=== PATIENT | female | born 1935 | race Caucasian/White ===

== ENCOUNTER 2018-06-10 18:35 | Inpatient (IN) | payer MEDICARE, OTHER ==
[~2018-06-10] VITALS: Ht 160 cm; Wt 72.4 kg
--- NOTE | 2018-06-10 18:45 | NUR ---
Patient brought in by EMS for mechanical ground level fall, patient states she tripped over a chair and fell to the ground, patient reports she recalls the whole event, denies loss of consciousness. Patient arrives alert and jovial, oriented to person and place although she does not know the year, she can state the current president. No active bleeding to head laceration, patient with bruising to bilateral lower extremities and skin tear to left grider. Patient denies pain stating "my legs are just sore but they don't hurt". No interventions by EMS. Call rai placed within reach.
[2018-06-10] MEDS ORDERED: LIDOCAINE-MPF 1%, 5ML INFIL ONE (19:00)
[2018-06-10] MEDS ORDERED: DIPH,PERTUSS(ACELL),TET VAC/PF 0.5 ML IM-VACC ONE ×2 (19:00→19:59)
[2018-06-10] MEDS ORDERED: HYDROcodone/APAP 5/325 TABLET PO PRN (19:00)
[2018-06-10 19:24] LABS: MICROSCOPIC AUTO
[2018-06-10 19:25] LABS: CULTURE INDICATED? YES
[2018-06-10 19:28] LABS: BASOPHILS # (AUTO) 0.03 x10^3/uL (0-0.1); BASOPHILS % (AUTO) 0 % (0-1); EOSINOPHILS # (AUTO) 0.07 x10^3/uL (0-0.4); EOSINOPHILS % (AUTO) 1 % (1-7); LYMPHOCYTES # (AUTO) 1.62 x10^3/uL (1-3.4); LYMPHOCYTES % (AUTO) 20 % (22-44); MD NO; MEAN CORPUSCULAR HGB CONC 33.3 g/dL (32.4-35.8); MEAN CORPUSCULAR VOLUME 96.1 fL (80-100); MEAN PLATELET VOLUME 8.6 fL (7.4-10.4); MONOCYTES # (AUTO) 0.59 x10^3/uL (0.2-0.8); MONOCYTES % (AUTO) 7 % (2-9); NEUTROPHILS # (AUTO) 5.76 x10^3/uL (1.8-6.8); NEUTROPHILS % (AUTO) 71 % (42-75); PLATELET COUNT 268 x10^3/uL (130-400); RED BLOOD COUNT 4.29 x10^6/uL (3.82-5.3); RED CELL DISTRIBUTION WIDTH 13.9 % (9.6-15.2)
[2018-06-10 19:35] LABS: INTERNATIONAL NORMALIZED RATIO 1.14 (0.93-1.1); PROTHROMBIN TIME 11.9 Seconds (9.6-11.5)
[2018-06-10 19:36] LABS: ALANINE AMINOTRANSFERASE 20 U/L (12-78); ALBUMIN 3.8 g/dL (3.4-5.0); ANION GAP 3 mmol/L (5-15); CALCIUM 8.9 mg/dL (8.5-10.1); CHLORIDE 108 mmol/L (98-107); CREATININE 0.98 mg/dL (0.55-1.02)
[2018-06-10 19:38] LABS: ALKALINE PHOSPHATASE 86 U/L (45-117); BILIRUBIN,TOTAL 0.3 mg/dL (0.2-1.0)
--- NOTE | 2018-06-10 19:40 | NUR ---
Spoke with patient's daughter in law Melissa who states patient has history of borderline personality disorder and it has recently been decided that patient should no longer live independently. Per Melissa the patient does not wish to live in assisted living and has therefore continued to reside independently at [facility]. Per Melissa, patient does not have a safe mode of transport home if she is discharged from the emergency department as she is forgetful and not appropriate for taxi transport. Medication list received from Melissa along with medical and surgical history. Dr. Cody updated.
[2018-06-10] MEDS ORDERED: CEFDINIR 300 MG CAPSULE ONE (19:59)
[2018-06-10] MEDS ORDERED: HYDROcodone/APAP 5/325 TABLET ONE (19:59)
[2018-06-10] MEDS ORDERED: CEFDINIR 300 MG CAPSULE PO ONE (20:00)
[2018-06-10] MEDS ORDERED: CARB200T4 PO (20:34)
[2018-06-10] MEDS ORDERED: CLOP75TA PO (20:34)
[2018-06-10] MEDS ORDERED: ALPR0.25 PO (20:34)
[2018-06-10] MEDS ORDERED: FURO20TA3 PO (20:34)
[2018-06-10] MEDS ORDERED: OMEP-110 PO (20:34)
[2018-06-10] MEDS ORDERED: LISI-170 PO (20:34)
[2018-06-10] MEDS ORDERED: POTA10TA31 PO (20:34)
[2018-06-10] MEDS ORDERED: ATOR40TA78 PO (20:34)
[2018-06-10] MEDS ORDERED: CARV6.252 PO (20:34)
--- NOTE | 2018-06-10 20:49 | NUR ---
Report called to DAVID Biggs. Plan of care updated with patient.
[2018-06-10] MEDS ORDERED: ONDANSETRON ODT 4 MG PO PRN (21:00)
[2018-06-10] MEDS ORDERED: BISACODYL 10 MG SUPP PR PRN (21:00)
[2018-06-10] MEDS ORDERED: ACETAMINOPHEN 325 MG TABLET PO PRN (21:00)
[2018-06-10] MEDS ORDERED: POLYETHYLENE GLYCOL 17 GM PACKET PO PRN (21:00)
[2018-06-10] MEDS ORDERED: FUROSEMIDE 20 MG TABLET PO SCH (21:00)
[2018-06-10 21:29] VITALS: BP 117/85
[2018-06-10] MEDS ORDERED: CEFTRIAXONE PMX 1GM/50ML 50 ML IV SCH (22:00)
[2018-06-10] MEDS: SODIUM CHLORIDE 0.9% 1,000 ML IV SCH (22:10)
[2018-06-10] MEDS: ATORVASTATIN 40 MG TABLET PO SCH (22:20)
[2018-06-10] MEDS: CARBAMAZEPINE 200 MG TABLET PO SCH (22:20)
[2018-06-10] MEDS: CARVEDILOL 6.25 MG TABLET PO SCH (22:20)
[2018-06-10] MEDS: POTASSIUM CHLORIDE 10 MEQ TABLET.ER PO SCH (22:20)
[2018-06-11 00:41] VITALS: BP 126/63
[2018-06-11 05:16] LABS: CHLORIDE 112 mmol/L (98-107)
[2018-06-11 05:26] LABS: ANION GAP 6 mmol/L (5-15); CALCIUM 8.4 mg/dL (8.5-10.1)
[2018-06-11 05:27] LABS: ALANINE AMINOTRANSFERASE 17 U/L (12-78); ALKALINE PHOSPHATASE 70 U/L (45-117); BILIRUBIN,TOTAL 0.4 mg/dL (0.2-1.0); CREATININE 0.78 mg/dL (0.55-1.02); TOTAL PROTEIN 5.7 g/dL (6.4-8.2)
[2018-06-11 05:40] LABS: BASOPHILS # (AUTO) 0.04 x10^3/uL (0-0.1); BASOPHILS % (AUTO) 1 % (0-1); EOSINOPHILS # (AUTO) 0.05 x10^3/uL (0-0.4); EOSINOPHILS % (AUTO) 1 % (1-7); LYMPHOCYTES # (AUTO) 1.67 x10^3/uL (1-3.4); LYMPHOCYTES % (AUTO) 24 % (22-44); MD NO; MEAN CORPUSCULAR HEMOGLOBIN 32.3 pg (27.0-34.8); MEAN CORPUSCULAR HGB CONC 33.9 g/dL (32.4-35.8); MEAN CORPUSCULAR VOLUME 95.2 fL (80-100); MEAN PLATELET VOLUME 8.8 fL (7.4-10.4); MONOCYTES % (AUTO) 10 % (2-9); NEUTROPHILS # (AUTO) 4.64 x10^3/uL (1.8-6.8); NEUTROPHILS % (AUTO) 65 % (42-75); PLATELET COUNT 193 x10^3/uL (130-400); RED BLOOD COUNT 3.75 x10^6/uL (3.82-5.3); RED CELL DISTRIBUTION WIDTH 13.9 % (9.6-15.2)
[2018-06-11 07:03] VITALS: BP 129/75
[2018-06-11] MEDS: CARVEDILOL 6.25 MG TABLET PO SCH ×2 (09:29→21:00)
[2018-06-11] MEDS: POTASSIUM CHLORIDE 10 MEQ TABLET.ER PO SCH ×2 (09:29→21:00)
[2018-06-11] MEDS: OMEPRAZOLE 20 MG CAPSULE.DR PO SCH (09:30)
[2018-06-11] MEDS: CLOPIDOGREL 75 MG TABLET PO SCH (09:30)
[2018-06-11] MEDS: LISINOPRIL 5 MG TABLET PO SCH (09:31)
[2018-06-11] MEDS: CARBAMAZEPINE 200 MG TABLET PO SCH ×3 (09:33→21:00)
[2018-06-11] MEDS: SENNA/DOCUSATE TABLET PO SCH (09:33)
[2018-06-11] MEDS: SODIUM CHLORIDE 0.9% 1,000 ML IV SCH ×2 (11:24→23:18)
[2018-06-11 12:06] VITALS: BP 131/74
[2018-06-11] MEDS ORDERED: LORazepam 0.5MG TABLET ONE (18:03)
[2018-06-11] MEDS ORDERED: LORazepam 0.5MG TABLET PO ONE (18:30)
[2018-06-11 19:18] VITALS: BP 121/60
[2018-06-11] MEDS: CEFDINIR 300 MG CAPSULE PO SCH (21:00)
[2018-06-11] MEDS: ATORVASTATIN 40 MG TABLET PO SCH (21:00)
[2018-06-12 02:34] VITALS: BP 103/61
[2018-06-12 07:31] VITALS: BP 125/81
[2018-06-12] MEDS ORDERED: LORazepam 0.5MG TABLET ONE ×2 (07:44→15:43)
[2018-06-12] MEDS: LORazepam INTENSOL 2 MG/ML PO PRN ×2 (07:47→15:48)
[2018-06-12] MEDS: CEFDINIR 300 MG CAPSULE PO SCH ×2 (07:47→20:48)
[2018-06-12] MEDS: CLOPIDOGREL 75 MG TABLET PO SCH (07:47)
[2018-06-12] MEDS: CARBAMAZEPINE 200 MG TABLET PO SCH ×3 (07:47→20:47)
[2018-06-12] MEDS: SENNA/DOCUSATE TABLET PO SCH (07:47)
[2018-06-12] MEDS: OMEPRAZOLE 20 MG CAPSULE.DR PO SCH (07:47)
[2018-06-12] MEDS: CARVEDILOL 6.25 MG TABLET PO SCH ×2 (07:48→20:48)
[2018-06-12] MEDS: POTASSIUM CHLORIDE 10 MEQ TABLET.ER PO SCH ×2 (07:48→20:48)
[2018-06-12] MEDS: LISINOPRIL 5 MG TABLET PO SCH (07:49)
[2018-06-12 12:02] VITALS: BP 98/61
[2018-06-12] MEDS: SODIUM CHLORIDE 0.9% 1,000 ML IV SCH (12:38)
[2018-06-12 18:52] VITALS: BP 103/59
[2018-06-12] MEDS: ATORVASTATIN 40 MG TABLET PO SCH (20:48)
[2018-06-13 01:28] VITALS: BP 96/58
[2018-06-13] MEDS: SODIUM CHLORIDE 0.9% 1,000 ML IV SCH ×2 (01:58→15:18)
[2018-06-13 06:38] VITALS: BP 102/54
[2018-06-13] MEDS: CARVEDILOL 6.25 MG TABLET PO SCH ×2 (09:16→21:00)
[2018-06-13] MEDS: OMEPRAZOLE 20 MG CAPSULE.DR PO SCH (09:16)
[2018-06-13] MEDS: CARBAMAZEPINE 200 MG TABLET PO SCH ×3 (09:16→20:57)
[2018-06-13] MEDS: CLOPIDOGREL 75 MG TABLET PO SCH (09:18)
[2018-06-13] MEDS: POTASSIUM CHLORIDE 10 MEQ TABLET.ER PO SCH ×2 (09:18→21:00)
[2018-06-13] MEDS: LISINOPRIL 5 MG TABLET PO SCH (09:18)
[2018-06-13] MEDS: CEFDINIR 300 MG CAPSULE PO SCH ×2 (09:19→20:56)
[2018-06-13] MEDS: SENNA/DOCUSATE TABLET PO SCH (09:19)
[2018-06-13 12:48] VITALS: BP 97/58
[2018-06-13] MEDS ORDERED: LORazepam 0.5MG TABLET ONE (15:46)
[2018-06-13] MEDS: LORazepam INTENSOL 2 MG/ML PO PRN (15:53)
[2018-06-13 18:31] VITALS: BP 104/65
[2018-06-13] MEDS: ATORVASTATIN 40 MG TABLET PO SCH (21:00)
[2018-06-14 02:22] VITALS: BP 129/77
[2018-06-14] MEDS: SODIUM CHLORIDE 0.9% 1,000 ML IV SCH ×2 (04:38→17:27)
[2018-06-14 06:43] VITALS: BP 100/64
[2018-06-14] MEDS: SENNA/DOCUSATE TABLET PO SCH (09:00)
[2018-06-14] MEDS: CARBAMAZEPINE 200 MG TABLET PO SCH ×3 (10:14→21:03)
[2018-06-14] MEDS: CLOPIDOGREL 75 MG TABLET PO SCH (10:14)
[2018-06-14] MEDS: OMEPRAZOLE 20 MG CAPSULE.DR PO SCH (10:14)
[2018-06-14] MEDS: CEFDINIR 300 MG CAPSULE PO SCH ×2 (10:14→21:03)
[2018-06-14] MEDS: CARVEDILOL 6.25 MG TABLET PO SCH ×2 (10:14→21:03)
[2018-06-14] MEDS: POTASSIUM CHLORIDE 10 MEQ TABLET.ER PO SCH ×2 (10:14→21:03)
[2018-06-14] MEDS: LISINOPRIL 5 MG TABLET PO SCH (10:15)
[2018-06-14 12:20] VITALS: BP 107/68
[2018-06-14 15:21] VITALS: BP 105/71
[2018-06-14 19:05] VITALS: BP 111/78
[2018-06-14] MEDS: ATORVASTATIN 40 MG TABLET PO SCH (21:03)
[2018-06-15 01:58] VITALS: BP 108/72
[2018-06-15] MEDS: SODIUM CHLORIDE 0.9% 1,000 ML IV SCH (07:18)
[2018-06-15] MEDS: CLOPIDOGREL 75 MG TABLET PO SCH (09:42)
[2018-06-15] MEDS: OMEPRAZOLE 20 MG CAPSULE.DR PO SCH (09:42)
[2018-06-15] MEDS: CEFDINIR 300 MG CAPSULE PO SCH (09:42)
[2018-06-15] MEDS: CARBAMAZEPINE 200 MG TABLET PO SCH ×3 (09:43→20:44)
[2018-06-15] MEDS: SENNA/DOCUSATE TABLET PO SCH (09:43)
[2018-06-15] MEDS: POTASSIUM CHLORIDE 10 MEQ TABLET.ER PO SCH ×2 (09:43→20:44)
[2018-06-15] MEDS: CARVEDILOL 6.25 MG TABLET PO SCH ×2 (09:44→20:44)
[2018-06-15] MEDS: LISINOPRIL 5 MG TABLET PO SCH (09:44)
[2018-06-15 13:24] VITALS: BP 107/67
[2018-06-15 19:24] VITALS: BP 102/61
[2018-06-15] MEDS: ATORVASTATIN 40 MG TABLET PO SCH (20:44)
[2018-06-16] VITALS (8 sets, daily range): BP systolic 73–110; BP diastolic 49–76
[2018-06-16] MEDS: POTASSIUM CHLORIDE 10 MEQ TABLET.ER PO SCH ×2 (08:35→21:29)
[2018-06-16] MEDS: CLOPIDOGREL 75 MG TABLET PO SCH (08:35)
[2018-06-16] MEDS: CARVEDILOL 6.25 MG TABLET PO SCH ×2 (08:35→21:33)
[2018-06-16] MEDS: SENNA/DOCUSATE TABLET PO SCH (08:35)
[2018-06-16] MEDS: CARBAMAZEPINE 200 MG TABLET PO SCH ×3 (08:35→21:30)
[2018-06-16] MEDS: OMEPRAZOLE 20 MG CAPSULE.DR PO SCH (08:35)
[2018-06-16] MEDS: LISINOPRIL 5 MG TABLET PO SCH (08:35)
[2018-06-16] MEDS: ATORVASTATIN 40 MG TABLET PO SCH (21:29)
[2018-06-17 00:51] VITALS: BP 108/68
[2018-06-17 08:18] VITALS: BP 110/69
[2018-06-17] MEDS: CARBAMAZEPINE 200 MG TABLET PO SCH (09:12)
[2018-06-17] MEDS: OMEPRAZOLE 20 MG CAPSULE.DR PO SCH (09:12)
[2018-06-17] MEDS: SENNA/DOCUSATE TABLET PO SCH (09:13)
[2018-06-17] MEDS: POTASSIUM CHLORIDE 10 MEQ TABLET.ER PO SCH (09:13)
[2018-06-17] MEDS: CARVEDILOL 6.25 MG TABLET PO SCH (09:13)
[2018-06-17] MEDS: CLOPIDOGREL 75 MG TABLET PO SCH (09:13)
[2018-06-17] MEDS: LISINOPRIL 5 MG TABLET PO SCH (09:14)
== END 2018-06-17 16:25 | disposition hospice, home (50) | DRG 70 ==
LOC: ED 20:36 → EDIP 20:38 → 3NW 21:01 → 3NE 06-14 15:10
PROVIDERS: ADMIT Internal Medicine; ATTEND Internal Medicine
DX: G93.41 Metabolic encephalopathy (principal); N17.0 Acute kidney failure with tubular necrosis; N39.0 Urinary tract infection, site not specified; I67.2 Cerebral atherosclerosis; F09 Unspecified mental disorder due to known physiological condition; W01.0XXA Fall on same level from slipping, tripping and stumbling without subsequent striking against object, initial encounter; E78.5 Hyperlipidemia, unspecified; F44.81 Dissociative identity disorder; F60.3 Borderline personality disorder; G40.909 Epilepsy, unspecified, not intractable, without status epilepticus; G89.11 Acute pain due to trauma; I10 Essential (primary) hypertension; I25.10 Atherosclerotic heart disease of native coronary artery without angina pectoris; K21.9 Gastro-esophageal reflux disease without esophagitis; M17.10 Unilateral primary osteoarthritis, unspecified knee; S01.01XA Laceration without foreign body of scalp, initial encounter; Z51.5 Encounter for palliative care; Z66 Do not resuscitate; Z95.1 Presence of aortocoronary bypass graft; Y93.89 Activity, other specified; Y92.89 Other specified places as the place of occurrence of the external cause; Y99.8 Other external cause status
CPT/HCPCS: 36415; 70450; 80053; 81001; 85025; 85610; 85730; 87086; 90471; 90715; 93005; 99285; G0378; J0696; 92523-GN; J7030

== ENCOUNTER 2018-07-30 11:28 | Inpatient (IN) | payer OTHER ==
[~2018-07-30] VITALS: Ht 162.6 cm; Wt 68.3 kg
[~2018-07-30 11:28] MED LIST: ALPR0.25 PO; ATOR40TA78 PO; CARB200T4 PO; CARV6.252 PO; CLOP75TA PO; FURO20TA3 PO; LISI-170 PO; OMEP-110 PO; POTA10TA31 PO
--- NOTE | 2018-07-30 11:47 | NUR ---
pt bib ems after mechanical glf 5 days ago. pt reports bilateral hip pain and states she hit her head. pt was unable to get up fro unknown amount of time. pt unable to recall home medications; red rec unable to be completed at this time. iv established seating captain. 100mcg fentanyl and 250mL NS given en route. connected to monitros. 86% on RA. 2L nc placed with recovery to 97%. all other vss. edmd assessment complete and orders received. pt to xr at this time.
[2018-07-30] MEDS ORDERED: SODIUM CHLORIDE FLUSH 10ML SYR IVF ONE (12:00)
--- NOTE | 2018-07-30 12:03 | NUR ---
pt back from xr.
--- NOTE | 2018-07-30 12:54 | NUR ---
lab draw complete. ct complete. awaiting resutls. vss. pt resting in bed.
[2018-07-30 13:12] LABS: BASOPHILS # (AUTO) 0.02 x10^3/uL (0-0.1); BASOPHILS % (AUTO) 0 % (0-1); EOSINOPHILS # (AUTO) 0.11 x10^3/uL (0-0.4); EOSINOPHILS % (AUTO) 2 % (1-7); LYMPHOCYTES # (AUTO) 1.03 x10^3/uL (1-3.4); LYMPHOCYTES % (AUTO) 15 % (22-44); MD NO; MEAN CORPUSCULAR HEMOGLOBIN 32.5 pg (27.0-34.8); MEAN CORPUSCULAR HGB CONC 33.5 g/dL (32.4-35.8); MEAN PLATELET VOLUME 8.1 fL (7.4-10.4); MONOCYTES # (AUTO) 0.71 x10^3/uL (0.2-0.8); MONOCYTES % (AUTO) 10 % (2-9); NEUTROPHILS # (AUTO) 5.11 x10^3/uL (1.8-6.8); NEUTROPHILS % (AUTO) 73 % (42-75); PLATELET COUNT 224 x10^3/uL (130-400); RED BLOOD COUNT 4.46 x10^6/uL (3.82-5.3); RED CELL DISTRIBUTION WIDTH 13.5 % (9.6-15.2)
--- NOTE | 2018-07-30 13:14 | NUR ---
pt refusing cath ua at this time.
[2018-07-30 13:19] LABS: INTERNATIONAL NORMALIZED RATIO 1.1 (0.93-1.1); PROTHROMBIN TIME 11.5 Seconds (9.6-11.5)
[2018-07-30 13:20] LABS: ALANINE AMINOTRANSFERASE 17 U/L (12-78); ALBUMIN 3.2 g/dL (3.4-5.0); ANION GAP 9 mmol/L (5-15); CALCIUM 8.6 mg/dL (8.5-10.1); CHLORIDE 109 mmol/L (98-107)
[2018-07-30 13:23] LABS: ALKALINE PHOSPHATASE 69 U/L (45-117); BILIRUBIN,TOTAL 0.7 mg/dL (0.2-1.0); CREATINE KINASE, TOTAL 211 U/L (26-192); CREATININE 0.73 mg/dL (0.55-1.02); TOTAL PROTEIN 6.6 g/dL (6.4-8.2)
--- NOTE | 2018-07-30 13:30 | NUR ---
PT SITTING ON EDGE OF BED MAKING ATTEMPTS TO STAND. PT ASKED TO GET BACK ON GURNEY OR AT LEAST SIT FURTHER BACK IN BED. PT CONTINUING TO REFUSE. PT YELLING AND CUSSING AT STAFF STATING "I'M GOING TO CALL A TAXI AND GO STRAIGHT TO THE POLICE STATION TO REPORT YOU! LET ME LEAVE!" PT UNABLE TO AMBULATE WITH STEADY GAIT AT THIS TIME. THIS RN STOOD AT BEDSIDE UNTIL TECH WAS ABLE TO SIT WITH PATIETN. PT REFUSING CATH UA AND VS AT THIS TIME.
--- NOTE | 2018-07-30 14:10 | NUR ---
SITTER TO DOOR WAY TO RELEIVE TECH. PT CONTINUES TO ESCALATE AND SCREAM OFTEN. PT STILL REFUSING CATH UA AND VS.
[2018-07-30] MEDS ORDERED: SODIUM CHLORIDE FLUSH 10ML SYR IVF PRN (14:30)
--- NOTE | 2018-07-30 14:30 | NUR ---
pt placed back in bed. pt lying on gurney. pt allowing vs. vss. sitter at doorway for safety. awaiting dispo.
--- NOTE | 2018-07-30 14:33 | NUR ---
PT WITH [facility]. DENIED BY [facility]
--- NOTE | 2018-07-30 15:07 | NUR ---
REC BS REPORT PT RESTING AT THIS TIME SITTER IN THE BEDOYA WATCHING THE PT
[2018-07-30 16:28] VITALS: BP 143/84
[2018-07-30] MEDS ORDERED: DOCUSATE 100 MG CAPSULE PO PRN (16:30)
[2018-07-30] MEDS ORDERED: ONDANSETRON 2MG/ML, 2ML IVPush PRN (16:30)
[2018-07-30] MEDS ORDERED: SODIUM CHLORIDE 0.9% 1,000 ML IV SCH (16:30)
[2018-07-30] MEDS ORDERED: ONDANSETRON ODT 4 MG PO PRN (16:30)
[2018-07-30] MEDS ORDERED: IBUPROFEN 600 MG TABLET PO PRN (16:30)
[2018-07-30] MEDS ORDERED: ACETAMINOPHEN 325 MG TABLET PO PRN (16:30)
[2018-07-30] MEDS ORDERED: POLYETHYLENE GLYCOL 17 GM PACKET PO PRN (16:30)
[2018-07-30] MEDS ORDERED: LORazepam 2 MG/ML, 1ML IVPush PRN (16:30)
[2018-07-30 16:37] LABS: THYROID STIMULATING HORMONE 2.63 mIU/L (0.358-3.740)
[2018-07-30] MEDS: ENOXAPARIN 40 MG/0.4 ML SQ SCH (17:31)
[2018-07-30 18:16] VITALS: BP 143/84
[2018-07-30] MEDS: CARBAMAZEPINE 200 MG TABLET PO SCH (20:28)
[2018-07-30 21:23] VITALS: BP 129/81
[2018-07-30 21:29] LABS: MICROSCOPIC INDICATED
[2018-07-30 21:40] LABS: CULTURE INDICATED? YES
[2018-07-31 03:37] VITALS: BP 134/74
[2018-07-31 05:31] LABS: BASOPHILS # (AUTO) 0.03 x10^3/uL (0-0.1); BASOPHILS % (AUTO) 0 % (0-1); EOSINOPHILS # (AUTO) 0.09 x10^3/uL (0-0.4); EOSINOPHILS % (AUTO) 2 % (1-7); LYMPHOCYTES # (AUTO) 0.78 x10^3/uL (1-3.4); LYMPHOCYTES % (AUTO) 12 % (22-44); MD NO; MEAN CORPUSCULAR HEMOGLOBIN 32.7 pg (27.0-34.8); MEAN CORPUSCULAR VOLUME 96.3 fL (80-100); MEAN PLATELET VOLUME 8.3 fL (7.4-10.4); MONOCYTES # (AUTO) 0.68 x10^3/uL (0.2-0.8); MONOCYTES % (AUTO) 11 % (2-9); NEUTROPHILS # (AUTO) 4.81 x10^3/uL (1.8-6.8); NEUTROPHILS % (AUTO) 75 % (42-75); PLATELET COUNT 206 x10^3/uL (130-400); RED BLOOD COUNT 4.07 x10^6/uL (3.82-5.3); RED CELL DISTRIBUTION WIDTH 13.7 % (9.6-15.2)
[2018-07-31 05:40] LABS: CHLORIDE 108 mmol/L (98-107)
[2018-07-31 05:59] LABS: ANION GAP 11 mmol/L (5-15); CALCIUM 8.5 mg/dL (8.5-10.1)
[2018-07-31] MEDS: CARVEDILOL 6.25 MG TABLET PO SCH ×2 (07:47→21:32)
[2018-07-31] MEDS: CLOPIDOGREL 75 MG TABLET PO SCH (07:47)
[2018-07-31] MEDS: OMEPRAZOLE 20 MG CAPSULE.DR PO SCH (07:47)
[2018-07-31] MEDS: CARBAMAZEPINE 200 MG TABLET PO SCH ×3 (07:47→21:32)
[2018-07-31 08:49] VITALS: BP 118/76
[2018-07-31] MEDS: CYANOCOBALAMIN 1,000 MCG/ML, 1ML IM SCH (08:55)
[2018-07-31] MEDS ORDERED: LISINOPRIL 5 MG TABLET PO SCH (09:00)
[2018-07-31 12:18] VITALS: BP 126/73
[2018-07-31] MEDS: ENOXAPARIN 40 MG/0.4 ML SQ SCH (17:09)
[2018-07-31 19:32] VITALS: BP 144/77
[2018-07-31] MEDS: METHOCARBAMOL 500 MG TABLET PO PRN (21:32)
[2018-08-01 03:17] VITALS: BP 156/88
[2018-08-01 07:08] VITALS: BP 153/83
[2018-08-01] MEDS: CLOPIDOGREL 75 MG TABLET PO SCH (09:15)
[2018-08-01] MEDS: OMEPRAZOLE 20 MG CAPSULE.DR PO SCH (09:15)
[2018-08-01] MEDS: CARVEDILOL 6.25 MG TABLET PO SCH ×2 (09:15→20:36)
[2018-08-01] MEDS: CARBAMAZEPINE 200 MG TABLET PO SCH ×3 (09:15→20:36)
[2018-08-01] MEDS: LISINOPRIL 5 MG TABLET PO SCH (09:16)
[2018-08-01] MEDS: CYANOCOBALAMIN 1,000 MCG/ML, 1ML IM SCH (10:58)
[2018-08-01 12:17] VITALS: BP 116/77
[2018-08-01] MEDS ORDERED: ERGOCALCIFEROL 50,000 UNIT CAPSULE PO SCH (17:00)
[2018-08-01] MEDS: ENOXAPARIN 40 MG/0.4 ML SQ SCH (17:08)
[2018-08-01 22:30] VITALS: BP 133/81
[2018-08-02 07:38] VITALS: BP 123/78
[2018-08-02] MEDS: CYANOCOBALAMIN 1,000 MCG/ML, 1ML IM SCH (09:30)
[2018-08-02] MEDS: CLOPIDOGREL 75 MG TABLET PO SCH (09:30)
[2018-08-02] MEDS: CARVEDILOL 6.25 MG TABLET PO SCH ×2 (09:30→21:00)
[2018-08-02] MEDS: CARBAMAZEPINE 200 MG TABLET PO SCH ×3 (09:30→21:00)
[2018-08-02] MEDS: OMEPRAZOLE 20 MG CAPSULE.DR PO SCH (09:30)
[2018-08-02] MEDS: LISINOPRIL 5 MG TABLET PO SCH (09:30)
[2018-08-02 12:59] VITALS: BP 126/79
[2018-08-02] MEDS: ENOXAPARIN 40 MG/0.4 ML SQ SCH (17:21)
[2018-08-02 18:34] VITALS: BP 120/76
[2018-08-02] MEDS: METHOCARBAMOL 500 MG TABLET PO PRN (21:00)
[2018-08-03 02:35] VITALS: BP 115/78
[2018-08-03 07:36] VITALS: BP 132/85
[2018-08-03] MEDS: CARBAMAZEPINE 200 MG TABLET PO SCH ×3 (11:01→20:25)
[2018-08-03] MEDS: OMEPRAZOLE 20 MG CAPSULE.DR PO SCH (11:01)
[2018-08-03] MEDS: CLOPIDOGREL 75 MG TABLET PO SCH (11:01)
[2018-08-03] MEDS: CARVEDILOL 6.25 MG TABLET PO SCH ×2 (11:01→20:25)
[2018-08-03] MEDS: LISINOPRIL 5 MG TABLET PO SCH (11:02)
[2018-08-03 13:03] VITALS: BP 104/72
[2018-08-03] MEDS: CYANOCOBALAMIN 1,000 MCG/ML, 1ML IM SCH (14:51)
[2018-08-03] MEDS: ENOXAPARIN 40 MG/0.4 ML SQ SCH (16:32)
[2018-08-03 20:11] VITALS: BP 103/67
[2018-08-04 01:00] VITALS: BP 105/65
[2018-08-04 07:30] VITALS: BP 95/53
[2018-08-04] MEDS: CARBAMAZEPINE 200 MG TABLET PO SCH ×3 (08:46→20:42)
[2018-08-04] MEDS: CLOPIDOGREL 75 MG TABLET PO SCH (08:55)
[2018-08-04] MEDS: CARVEDILOL 6.25 MG TABLET PO SCH ×2 (08:56→20:42)
[2018-08-04] MEDS: OMEPRAZOLE 20 MG CAPSULE.DR PO SCH (08:56)
[2018-08-04] MEDS ORDERED: METH500T7 PO (11:53)
[2018-08-04] MEDS ORDERED: ACET325T14 PO (11:53)
[2018-08-04] MEDS ORDERED: ERGO500017 PO (11:53)
[2018-08-04 13:00] VITALS: BP 100/64
[2018-08-04] MEDS: CYANOCOBALAMIN 1,000 MCG/ML, 1ML IM SCH (15:07)
[2018-08-04] MEDS: ENOXAPARIN 40 MG/0.4 ML SQ SCH (16:05)
[2018-08-04 19:34] VITALS: BP 123/75
[2018-08-05 02:48] VITALS: BP 107/71
[2018-08-05 08:29] VITALS: BP 124/79
[2018-08-05] MEDS: OMEPRAZOLE 20 MG CAPSULE.DR PO SCH (10:59)
[2018-08-05] MEDS: CLOPIDOGREL 75 MG TABLET PO SCH (10:59)
[2018-08-05] MEDS: CARBAMAZEPINE 200 MG TABLET PO SCH (10:59)
[2018-08-05] MEDS: CARVEDILOL 6.25 MG TABLET PO SCH (10:59)
[2018-08-05 11:57] VITALS: BP 117/74
[2018-08-05 12:29] VITALS: BP 117/74
== END 2018-08-05 14:24 | disposition hospice, home (50) | DRG 542 ==
LOC: ED 11:59 → EDIP 14:18 → OBSVTOIN 14:18 → INTOOBSV 14:18 → 3NE 15:54
PROVIDERS: ADMIT Internal Medicine; ATTEND Internal Medicine
PROC: 0T9B70Z Drainage of Bladder with Drainage Device, Via Natural or Artificial Opening (ICD-10-PCS; principal; 2018-07-30)
DX: M48.56XA Collapsed vertebra, not elsewhere classified, lumbar region, initial encounter for fracture (principal); J96.00 Acute respiratory failure, unspecified whether with hypoxia or hypercapnia; Z66 Do not resuscitate; Z51.5 Encounter for palliative care; R62.7 Adult failure to thrive; R26.2 Difficulty in walking, not elsewhere classified; E55.9 Vitamin D deficiency, unspecified; E78.5 Hyperlipidemia, unspecified; F60.3 Borderline personality disorder; G31.84 Mild cognitive impairment of uncertain or unknown etiology; G40.909 Epilepsy, unspecified, not intractable, without status epilepticus; I10 Essential (primary) hypertension; I25.10 Atherosclerotic heart disease of native coronary artery without angina pectoris; K21.9 Gastro-esophageal reflux disease without esophagitis; W18.30XA Fall on same level, unspecified, initial encounter; Y92.009 Unspecified place in unspecified non-institutional (private) residence as the place of occurrence of the external cause; Y93.89 Activity, other specified; Z95.1 Presence of aortocoronary bypass graft
CPT/HCPCS: 36415; 70450; 71045; 72072; 72100; 72128; 72131; 73523; 80048; 80053; 80157; 81001; 82306; 82550; 82607; 83735; 84443; 85025; 85610; 85730; 86480; 87086; 93970; 99285; J1650; G0378; J2060; J3420; J7030